=== PATIENT | male | born 1960 | race Caucasian/White ===

== ENCOUNTER → 2017-02-27 | Outpatient (REF) | payer OTHER ==
[2017-02-27 18:12] LABS: BASO % 0.5 % (0.0-1.0); EOS # 0.2 K/mm3 (0.0-0.50); EOS % 2.2 % (0.0-3.0); LARGE UNSTAINED CELL # 0.1 K/mm3 (0.0-0.4); LARGE UNSTAINED CELL % 1.2 % (0.0-4.0); LYMPH # 1.8 K/mm3 (1.5-4.5); LYMPH % 24.3 % (24.0-44.0); MEAN CORPUSCULAR HEMOGLOBIN 32.2 pg (27.0-33.0); MEAN CORPUSCULAR HGB CONC 33.7 g/dl (32.0-36.5); MEAN CORPUSCULAR VOLUME 95.4 fl (80.0-96.0); MONO # 0.5 K/mm3 (0.0-0.8); MONO % 6.6 % (0.0-5.0); NEUTROPHILS # 4.7 K/mm3 (1.8-7.7); NEUTROPHILS % 65.1 % (36.0-66.0); PLATELET COUNT, AUTOMATED 274 k/mm3 (150-450); WHITE BLOOD COUNT 7.1 K/mm3 (4.0-10.0)
[2017-02-27 18:49] LABS: ALBUMIN 4.1 GM/DL (3.2-5.2); ALBUMIN/GLOBULIN RATIO 1.21 (1.00-1.93); ALKALINE PHOSPHATASE 95 U/L (45-117); ALT/SGPT 32 U/L (12-78); ANION GAP 6 MEQ/L (8-16); AST/SGOT 16 U/L (15-37); BILIRUBIN,TOTAL 0.6 MG/DL (0.2-1.0); BLOOD UREA NITROGEN 16 MG/DL (7-18); CALCIUM LEVEL 8.7 MG/DL (8.5-10.1); CARBON DIOXIDE LEVEL 25 MEQ/L (21-32); CHLORIDE LEVEL 108 MEQ/L (98-107); CHOLESTEROL LEVEL 273 MG/DL (<200); CREATININE FOR GFR 1.01 MG/DL (0.70-1.30); GLOMERULAR FILTRATION RATE > 60.0 (>56); GLUCOSE, FASTING 90 MG/DL (70-105); POTASSIUM SERUM 4.6 MEQ/L (3.5-5.1); SODIUM LEVEL 139 MEQ/L (136-145); TOTAL PROTEIN 7.5 GM/DL (6.4-8.2); TRIGLYCERIDES LEVEL 188 MG/DL (<150)
== END ==
LOC: M LAB REF 16:40
PROVIDERS: ATTEND Family Medicine
DX: Z00.00 Encounter for general adult medical examination without abnormal findings (principal); I10 Essential (primary) hypertension; E78.4 Other hyperlipidemia; Z72.0 Tobacco use

== ENCOUNTER → 2017-08-13 | Outpatient (CLI) | payer OTHER ==
[~2017-08-13] MED LIST: ISOVUE-370 76% 100ML VIAL (Q9967) As Ordered ONE
--- NOTE | 2017-08-13 11:09 | REP ---
CT of the abdomen and pelvis without and with IV contrast. After IV contrast scanning is initially performed during the late arterial / portal venous phase of enhancement and later during the delayed equilibrium phase of enhancement. There are no comparison studies. There are no renal, ureteral or bladder calculi. There is no hydronephrosis. There are no solid or cystic renal masses. There are no bladder masses. There are prostatic of this. The visualized lung lira are unremarkable. The hepatic parenchyma, gallbladder, pancreas and spleen are normal size and unremarkable on all phases. The adrenals are unremarkable. There is an infrarenal abdominal aortic aneurysm measuring 4.6 cm greatest diameter with peripheral marrow thrombus within the aneurysm. Above this at the level of the renal arteries. There is a smaller aneurysm measuring 3.0 cm in diameter maximally. There is no periaortic hematoma. The bowel and mesentery are unremarkable except for descending colon and sigmoid colon diverticulosis without diverticulitis. Pelvis: The appendix has a normal appearance. The there is no ascites or adenopathy. There are phleboliths. There is moderate degenerative disc disease throughout the lumbar spine. There is osteoarthritis of the hips, more advanced on the left. Impression: There are no renal collecting system calculi. There are no renal solid or cystic masses. No bladder masses. No hydronephrosis. There is diverticulosis without diverticulitis. There are two abdominal aortic aneurysms as described. Signed by Quintin Mendoza MD 08/13/2017 11:02 A
== END ==
LOC: M RAD 08:56
PROVIDERS: ATTEND Nurse Practitioner Women's Health
DX: I87.8 Other specified disorders of veins (principal); R31.9 Hematuria, unspecified
CPT/HCPCS: 74178; Q9967

== ENCOUNTER 2018-10-13 11:38 | Emergency (ER) | payer OTHER ==
[~2018-10-13] VITALS: Ht 180.3 cm; Wt 96.5 kg
[2018-10-13] MEDS ORDERED: LOSA100T50 PO (11:49)
[2018-10-13 12:09] LABS: BASO % 0.3 % (0.0-1.0); EOS # 0.1 10^3/uL (0.0-0.50); EOS % 1.7 % (0.0-3.0); HEMATOCRIT 39.8 % (42.0-52.0); HEMOGLOBIN 13.6 g/dl (13.5-17.5); LYMPH # 1.6 10^3/uL (1.5-4.5); LYMPH % 27.5 % (24.0-44.0); MEAN CORPUSCULAR HEMOGLOBIN 30.6 pg (27.0-33.0); MEAN CORPUSCULAR HGB CONC 34.2 g/dl (32.0-36.5); MEAN CORPUSCULAR VOLUME 89.6 fl (80.0-96.0); MONO # 0.3 10^3/uL (0.0-0.8); MONO % 5.2 % (0.0-5.0); NEUTROPHILS # 3.8 10^3/uL (1.8-7.7); PLATELET COUNT, AUTOMATED 253 10^3/uL (150-450); RED BLOOD COUNT 4.44 10^6/uL (4.30-6.10); WHITE BLOOD COUNT 5.9 10^3/uL (4.0-10.0)
[2018-10-13 12:16] LABS: INR 0.89; PROTHROMBIN TIME 12.1 SECONDS (12.1-14.4)
--- NOTE | 2018-10-13 12:28 | REP ---
Chest one-view HISTORY: Chest pain Comparison: None The lungs are clear. The heart is normal in size. The pulmonary vasculature is normal in appearance. Impression: No acute disease. Electronically Signed by Francisco J Mars MD 10/13/2018 12:20 P
[2018-10-13 12:40] LABS: ALBUMIN 3.8 GM/DL (3.2-5.2); ALT/SGPT 30 U/L (12-78); BILIRUBIN,DIRECT 0.2 MG/DL (0.0-0.2); BILIRUBIN,TOTAL 0.7 MG/DL (0.2-1.0); BLOOD UREA NITROGEN 14 MG/DL (7-18); CALCIUM LEVEL 8.9 MG/DL (8.8-10.2); CARBON DIOXIDE LEVEL 25 MEQ/L (21-32); CHLORIDE LEVEL 104 MEQ/L (98-107); CPK CREATINE PHOSPHOKINASE 179 U/L (39-308); CREATININE FOR GFR 1.17 MG/DL (0.70-1.30); GLOMERULAR FILTRATION RATE > 60.0 (>49); GLUCOSE, FASTING 184 MG/DL (70-100); LIPASE 213 U/L (73-393); MB/CK RELATIVE INDEX 0.73 (< OR =4); NT-PRO BNP 10 PG/ML (<125); POTASSIUM SERUM 3.7 MEQ/L (3.5-5.1); SODIUM LEVEL 139 MEQ/L (136-145); TOTAL PROTEIN 7.6 GM/DL (6.4-8.2); TROPONIN I < 0.02 NG/ML (< 0.10)
[2018-10-13] MEDS ORDERED: ISOVUE-370 76% 100ML VIAL (Q9967) As Ordered ONE (13:39)
--- NOTE | 2018-10-13 13:39 | ECGEPIP ---
Stationary ECG Study [facility] - ED Test Date: 2018-10-13 Pat Name: PALMIRA JOYCE Department: Room: - Gender: M Veterinary Manager: TC : 1960 Requested By: Irena Vaz Order Number: [id number] Reading MD: Erik Vera Measurements Intervals [place] Rate: 79 P: 67 UT: 143 QRS: 1 QRSD: 147 T: 50 QT: 411 QTc: 473 Interpretive Statements SINUS RHYTHM WITH OCCASIONAL VENTRICULAR PREMATURE COMPLEXES RIGHT BUNDLE BRANCH BLOCK NO PRIORS FOR COMPARISON Electronically Signed On 10-13-2018 13:39:19 EST by Erik Vera
--- NOTE | 2018-10-13 14:36 | REP ---
CT ANGIO CHEST: HISTORY: Shortness of breath. CONTRAST: Isovue 370, 100 mL. There are no filling defects in the main , right and left pulmonary arteries or their branches. A 5 mm parenchymal nodule is present in the left lower lobe seen in image #61. The right lung is clear. There is no pleural effusion. The heart is normal in size. There is no aneurysm. Degenerative change is present in the thoracic spine. IMPRESSION: 1. There is no pulmonary embolism. 2. There is a 5 mm parenchymal nodule in the left lower lobe. CT of the chest may be helpful for further evaluation. Electronically Signed by Francisco J Mars MD 10/13/2018 02:43 P
--- NOTE | 2018-10-13 14:41 | REP ---
CT abdomen and pelvis with IV but without oral contrast: History: Chest pain and shortness of breath. CT contrast dose: 100 mL of intravenous Isovue 370. Comparison CT study: August 13, 2017. CT findings: Preliminary digital nurseryman assistant radiograph is unremarkable. The lung bases are clear. There is diffuse fatty infiltration of the liver. No focal liver mass lesion is seen. There are two small accessory splenules. No adrenal lesion is seen. The gallbladder is unremarkable. No pancreatic abnormality is appreciated. The kidneys enhance symmetrically and are morphologically intact. No hydronephrosis is seen. A normal appendix is observed. There is pancolonic diverticulosis. There is no CT evidence of diverticulitis. Urinary bladder is somewhat distended at the time of scanning. Prostate gland is mildly enlarged and contains dystrophic calcifications. Seminal vesicles are unremarkable. No abdominal wall defect is seen. Small and large bowel loops are unremarkable. No obstructive lesion is seen. There is an infrarenal abdominal aortic aneurysm which measures 4.7 cm in AP dimension by 4.6 cm in right to left dimension. There is osteoarthritis of the hips, left more so than right. Degenerative disc changes are noted in the lumbar spine. Impression: Fatty infiltration of the liver. 4.6 cm infrarenal abdominal aortic aneurysm without evidence of rupture. Mild pancolonic diverticulosis without diverticulitis. Mild prostate enlargement and bladder distension. Normal appendix. Electronically Signed by Bill Newby MD 10/13/2018 05:47 P
[2018-10-13 18:37] LABS: CK-MB VALUE MASS < 1.0 NG/ML (<3.6); CPK CREATINE PHOSPHOKINASE 153 U/L (39-308); MB/CK RELATIVE INDEX 0.65 (< OR =4); TROPONIN I < 0.02 NG/ML (< 0.10)
[2018-10-13] MEDS ORDERED: ASPI81TA85 PO (19:04)
[2018-10-13 19:19] VITALS: BP 150/78
--- NOTE | 2018-10-14 02:58 | ECGEPIP ---
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
--- NOTE | 2018-10-14 15:47 | ED PDOC ---
Post-Departure Follow-Up dr parks faxed formal report of ct abd/p for fu Mildred Maldonado MD Oct 14, 2018 15:47
--- NOTE | 2018-10-14 15:52 | ED PDOC ---
Post-Departure Follow-Up additionally cta chest faxed to dr parks for fu Mildred Maldonado MD Oct 14, 2018 15:52
== END 2018-10-13 19:20 | disposition home or self-care (01) ==
LOC: M ED 11:38
DX: R07.9 Chest pain, unspecified (principal); R06.02 Shortness of breath; I45.10 Unspecified right bundle-branch block; I10 Essential (primary) hypertension; I71.4 Abdominal aortic aneurysm, without rupture; Z86.73 Personal history of transient ischemic attack (TIA), and cerebral infarction without residual deficits; Z79.899 Other long term (current) drug therapy; Z79.82 Long term (current) use of aspirin; Z87.891 Personal history of nicotine dependence
CPT/HCPCS: 36415; 71045; 71275; 74177; 80048; 80076; 82550; 82553; 83690; 83880; 84443; 84484; 85025; 85610; 93005; 93041; 94760; 99285; Q9967

== ENCOUNTER → 2019-06-13 | Outpatient (REF) | payer OTHER ==
[~2019-06-13] MED LIST changes: +ASPI81TA85 PO; -ISOVUE-370 76% 100ML VIAL (Q9967) As Ordered ONE; +LOSA100T50 PO
[2019-06-13 19:56] LABS: BASO % 0.8 % (0.0-1.0); EOS # 0.3 10^3/uL (0.0-0.5); EOS % 6.4 % (0.0-3.0); HEMATOCRIT 40.2 % (42.0-52.0); HEMOGLOBIN 13.2 g/dl (13.5-17.5); LYMPH # 1.3 10^3/uL (1.5-5.0); LYMPH % 25.9 % (24.0-44.0); MEAN CORPUSCULAR HEMOGLOBIN 31.4 pg (27.0-33.0); MEAN CORPUSCULAR HGB CONC 32.8 g/dl (32.0-36.5); MEAN CORPUSCULAR VOLUME 95.5 fl (80.0-96.0); MONO # 0.5 10^3/uL (0.0-0.8); MONO % 9.6 % (0.0-5.0); NEUTROPHILS # 2.8 10^3/uL (1.5-8.5); NEUTROPHILS % 56.9 % (36.0-66.0); PLATELET COUNT, AUTOMATED 240 10^3/uL (150-450); RED BLOOD COUNT 4.21 10^6/uL (4.30-6.10)
[2019-06-13 20:07] LABS: ALT/SGPT 39 U/L (12-78); BILIRUBIN,TOTAL 0.5 MG/DL (0.2-1.0); BLOOD UREA NITROGEN 14 MG/DL (7-18); CALCIUM LEVEL 8.8 MG/DL (8.8-10.2); CARBON DIOXIDE LEVEL 25 MEQ/L (21-32); CHLORIDE LEVEL 107 MEQ/L (98-107); CHOLESTEROL LEVEL 236 MG/DL (<200); CREATININE FOR GFR 1.08 MG/DL (0.70-1.30); GLOMERULAR FILTRATION RATE > 60.0 (>49); GLUCOSE, FASTING 103 MG/DL (70-100); HDL CHOLESTEROL 46 MG/DL (>40); LDL CHOLESTEROL 148 MG/DL (<100); NON-HDL-C 190 MG/DL; POTASSIUM SERUM 4.3 MEQ/L (3.5-5.1); SODIUM LEVEL 141 MEQ/L (136-145); TOTAL PROTEIN 7.2 GM/DL (6.4-8.2); TRIGLYCERIDES LEVEL 210 MG/DL (<150)
== END ==
LOC: M LAB REF 18:40
PROVIDERS: ATTEND Family Medicine
DX: I71.4 Abdominal aortic aneurysm, without rupture (principal); I10 Essential (primary) hypertension; Z87.891 Personal history of nicotine dependence; E78.49 Other hyperlipidemia; Z00.00 Encounter for general adult medical examination without abnormal findings; M54.30 Sciatica, unspecified side

== ENCOUNTER → 2021-08-23 | Outpatient (REF) | payer OTHER ==
[~2021-08-23] MED LIST changes: -ASPI81TA85 PO; +ASPI81TA86 PO
[2021-08-23 17:19] LABS: APPEARANCE, URINE CLEAR (CLEAR); BACTERIA, URINE AUTO NEGATIVE (NEGATIVE); BILIRUBIN, URINE AUTO NEGATIVE (NEGATIVE); BLOOD, URINE BLOOD NEGATIVE (NEGATIVE); COLOR, URINE YELLOW (YELLOW); GLUCOSE, URINE (UA) AUTO NEGATIVE (NEGATIVE); KETONE, URINE AUTO NEGATIVE (NEGATIVE); LEUKOCYTE ESTERASE, URINE AUTO NEGATIVE (NEGATIVE); MUCUS, URINE SMALL (NEGATIVE); NITRITE, URINE AUTO NEGATIVE (NEGATIVE); PROTEIN, URINE AUTO NEGATIVE (NEGATIVE); RBC, URINE AUTO 0 /HPF (0-3); SPECIFIC GRAVITY URINE AUTO 1.015 (1.002-1.035); SQUAMOUS EPITHELIAL CELL UR AU 0 /HPF (0-6); UROBILINOGEN, URINE AUTO 0.2 mg/dL (0.0-2.0); WBC, URINE AUTO 1 /HPF (0-3)
== END ==
LOC: M SMT 16:37
PROVIDERS: ATTEND Nurse Practitioner Women's Health
DX: R31.0 Gross hematuria (principal)

== ENCOUNTER 2024-11-21 06:21 | Day surgery (SDC) | payer MEDICARE, OTHER ==
[~2024-11-21] VITALS: Ht 177.8 cm; Wt 85.9 kg
[~2024-11-21 06:21] MED LIST changes: +ALBU8.5H INH; +ATOR40TA75 PO; +ECOT81TA5 PO; +INCR1INH INH; +LOSA100T46 PO; -LOSA100T50 PO; +METF-1156 PO
[2024-11-21] MEDS ORDERED: propofoL 200 MG/20 ML VIAL As Ordered ONE (06:39)
[2024-11-21] MEDS ORDERED: LIDOCAINE 2% 100MG/5ML SDV (FOR ANES.) As Ordered ONE (06:40)
[2024-11-21] MEDS: PHENYLEPHRINE 2.5% OPHTH SOL 2ML OD SCH (06:45)
[2024-11-21] MEDS: FLURBIPROFEN 0.03% OPHTH SOLN 2.5 ML OD SCH (06:45)
[2024-11-21] MEDS: TETRACAINE 0.5% OPHTH SOLN 4ML OD SCH (06:45)
[2024-11-21] MEDS: CYCLOPENTOLATE 1% OPHTH SOLN 2ML BTL OD SCH (06:45)
[2024-11-21] MEDS ORDERED: LR 1,000 ML IV SCH (07:00)
[2024-11-21] MEDS: LIDOCAINE 1% SDV 5ML VIAL As Ordered ONE (08:06)
[2024-11-21] MEDS: CEFUROXIME 1MG/0.1ML INTRACAMERAL INJ As Ordered ONE (08:25)
[2024-11-21 08:35] VITALS: BP 160/85; TEMP 98; O2SAT 98
== END 2024-11-21 08:52 | disposition home or self-care (01) ==
LOC: M SDC 06:21
PROVIDERS: ATTEND Ophthalmology
DX: H25.11 Age-related nuclear cataract, right eye (principal); E11.9 Type 2 diabetes mellitus without complications; I71.40 Abdominal aortic aneurysm, without rupture, unspecified; Z79.899 Other long term (current) drug therapy; Z87.891 Personal history of nicotine dependence
CPT/HCPCS: 66984; J0697; V2788

== ENCOUNTER 2024-12-26 06:13 | Day surgery (SDC) | payer MEDICARE, OTHER ==
[~2024-12-26] VITALS: Ht 177.8 cm; Wt 90.5 kg
[2024-12-26] MEDS: CYCLOPENTOLATE 1% OPHTH SOLN 2ML BTL OS SCH (06:48)
[2024-12-26] MEDS: TETRACAINE 0.5% OPHTH SOLN 4ML OS SCH (06:48)
[2024-12-26] MEDS: FLURBIPROFEN 0.03% OPHTH SOLN 2.5 ML OS SCH (06:48)
[2024-12-26] MEDS: PHENYLEPHRINE 2.5% OPHTH SOL 2ML OS SCH (06:48)
[2024-12-26] MEDS ORDERED: GLUCOSE 4 GM CHEW PO PRN (06:50)
[2024-12-26] MEDS ORDERED: DEXTROSE 50% 50ML SYRINGE IV PRN (06:50)
[2024-12-26] MEDS ORDERED: GLUCAGON INJ 1MG VIAL SC PRN (06:50)
[2024-12-26] MEDS ORDERED: MIDAZOLAM INJ 2MG/2ML VIAL As Ordered ONE (06:52)
[2024-12-26] MEDS ORDERED: fentaNYL 100 MCG/2 ML INJECTION As Ordered ONE (06:52)
[2024-12-26] MEDS ORDERED: LR 1,000 ML IV SCH (07:00)
[2024-12-26] MEDS: INSULIN LISPRO (NovoLOG) PER UNIT SC PRN (07:22)
[2024-12-26] MEDS: CEFUROXIME 1MG/0.1ML INTRACAMERAL INJ As Ordered ONE (08:03)
[2024-12-26] MEDS: LIDOCAINE 1% SDV 5ML VIAL As Ordered ONE (08:03)
[2024-12-26 08:30] VITALS: BP 161/85; TEMP 97.6; O2SAT 98
== END 2024-12-26 08:47 | disposition home or self-care (01) ==
LOC: M SDC 06:13
PROVIDERS: ATTEND Ophthalmology
DX: E11.36 Type 2 diabetes mellitus with diabetic cataract (principal); H25.12 Age-related nuclear cataract, left eye; E78.00 Pure hypercholesterolemia, unspecified; J44.9 Chronic obstructive pulmonary disease, unspecified; Z79.899 Other long term (current) drug therapy; Z79.82 Long term (current) use of aspirin; Z79.84 Long term (current) use of oral hypoglycemic drugs; Z79.51 Long term (current) use of inhaled steroids; Z86.73 Personal history of transient ischemic attack (TIA), and cerebral infarction without residual deficits; Z87.891 Personal history of nicotine dependence; Z86.79 Personal history of other diseases of the circulatory system
CPT/HCPCS: 66984; J0697; J1815; J2250; J3010; V2788